=== PATIENT | male | born 1975 | race African-American/Black ===

== ENCOUNTER 2021-08-10 21:00 | Emergency (ER) | payer MEDICAID ==
[~2021-08-10] VITALS: Ht 172.7 cm; Wt 116.3 kg
[2021-08-10 21:25] VITALS: BP 138/101
[2021-08-10] MEDS ORDERED: BENZ-38 PO (22:19)
[2021-08-10] MEDS ORDERED: benzonatate 100mg capsule PO ONE (22:20)
--- NOTE | 2021-08-10 22:49 | NUR ---
PO MED GIVEN
== END 2021-08-10 22:51 | disposition home or self-care (01) ==
LOC: ER 21:02
DX: U07.1 COVID-19 (principal); Z88.8 Allergy status to other drugs, medicaments and biological substances
CPT/HCPCS: 99283